=== PATIENT | female | born 1990 | race Caucasian/White ===

== ENCOUNTER 2020-12-11 10:11 | Emergency (ER) | payer BC ==
--- NOTE | 2020-12-11 10:44 | EDM.PDOC ---
ED HPI GENERAL MEDICAL PROBLEM - General Chief Complaint: Lower Extremity Injury/Pain Stated Complaint: BROKEN FOOT Time Seen by Provider: 12/11/20 10:20 Source of Information: Reports: Patient History Limitations: Reports: No Limitations - History of Present Illness INITIAL COMMENTS - FREE TEXT/NARRATIVE: HISTORY AND PHYSICAL: History of present illness: The patient is a 29 year old female, who presents with complaints of left calf pain and cramping, which started on Tuesday becoming progressively worse. She was casted two weeks ago due to left 5th metatars[address] Dr. Radha Hatch. The patient did call Dr. Hatch and was told to be seen in the ED. She does have nausea due to the pain. She denies any new injury and has been using a scooter to get around. She denies sticking any foreign objects into her cast, using only her hand. She states that previously she had been able to stick her hand down posterior cast but now is unable. She denies numbness or tingling. Patient denies any fever, chills, headache, change in vision, syncope or near syncope. Denies any chest pain, back pain, shortness of breath or cough. Denies any abdominal pain, vomiting, diarrhea, constipation or dysuria. Patient has been eating and drinking appropriately. Review of systems: As per history of present illness and below otherwise all systems reviewed and negative. Past medical history: As per history of present illness and as reviewed below otherwise noncontributory. Surgical history: As per history of present illness and as reviewed below otherwise noncontributory. Social history: See social history for further information Family history: As per history of present illness and as reviewed below otherwise noncontributory. Physical exam: General: Well developed and well nourished. Alert and orientated x 3. Nontoxic in appearance and in no acute distress. Vital signs are stable and have been reviewed by me. Nursing notes were reviewed. HEENT: Atraumatic, normocephalic, pupils equal and reactive bilaterally, negative for conjunctival pallor or scleral icterus, mucous membranes moist, TMs normal bilaterally, throat clear, neck supple, nontender, trachea midline. No drooling or trismus noted. No meningeal signs. No hot potato voice noted. Lungs: Clear to auscultation bilaterally. No wheezes, rales, or rhonchi. Chest nontender. Normal work of breathing, no accessory muscles used. Heart: S1S2, regular rate and rhythm without overt murmur, gallops, or rubs. No JVD. No peripheral edema Abdomen: Soft, nondistended, nontender. Normoactive bowel sounds. Negative for masses or costovertebral tenderness. Skin: Intact, warm, dry. No lesions or rashes noted. Hematologic: No petechiae or purpra. Mucosa appropriate color and normal nail bed color and refill. Extremities: Left lower foot casted. cap refill < 3 sec. Left calf cooler than right. Left toes and feet warm and dry. Moves all extremities per self without difficulty. Neurovascular unremarkable. Neuro: Awake, alert, oriented. Cranial nerves II through XII unremarkable. Cerebellum unremarkable. Motor and sensory unremarkable throughout. Exam nonfocal. Psychiatric: Mood and affect are appropriate. Normal thought process. Answering questions appropriately. Notes: *This patient was seen and evaluated during the 2019 SARS-CoV-2 novel coronavirus pandemic period. Community viral transmission is ongoing at time of this encounter and the emergency department is operating under pandemic response procedures. After discussion with the patient and exam, the patient is agreeable to removing cast and obtain an US. Patient will wear her walking boot home, as her appointment with Dr. Hatch is tomorrow. The patient's cast was removed. Patient tolerated well. No skin breakdown noted . Good pedal pulses noted. The patient's US imaging demonstrates DVT within the left posterior tibial veins. The left common femoral, deep femoral, superficial femoral, popliteal, and greater saphenous veins are fully compressible with normal color Doppler blood flow. per Dr. Nguyen, Radiologist. The patient is on control and has been advised to stop the oral control and to use back up contraception. She is agreeable to this. The patients labs are unremarkable. The patient has no SOB or cardiac distress. Eliquis 10mg BID for 7 days then Eliquis 5mg BID for 7 days prescribed. Patient to follow up with PCP. The patient gave verbal understanding. Eliquis education given to patient. I have talked with the patient about today's findings, in addition to providing specific details for plan of care. Reassessment at the time of disposition demonstrates that the patient is in no acute distress. The patient is stable for discharge, counseling was provided and we discussed in great detail signs and symptoms that would prompt them to return to the Emergency Department. Medication, follow up and supportive care measures were reviewed and discussed. Voices understanding and is agreeable to plan of care. Denies any further questions or concerns at this time. Diagnostics:US, CBC, CMP, PT, PTT, Therapeutics:Zofran Prescription: Eliquis 10mg BID for 7 days and then 5mg BID for 7 day Impression: DVT Plan: 1. You were evaluated today on an emergent basis. Your complaints of left lower leg pain and swelling under cast. Your ultrasound was positive for left posterio r tibial veins thrombosis. You will be started on Eliquis 10mg twice daily for 7 days. The Eliquis 5mg twice daily. You will need to keep your appointment with Dr. Quezada. You need to follow up with your primary care provider next week. No alcohol. Stop your control. You will need to use a backup contraception such as condoms. Will need to follow-up with your NANOSCIENCE TECHNICIAN. 2. You can alternate Tylenol and ibuprofen as needed for pain and fever management. 3. We encourage you to follow up with your primary care provider and/or recommended specialist in the next few days for re-evaluation and further care/management. 4. If your symptoms should worsen, new symptoms develop or any of the signs and symptoms we discussed should arise please return to the emergency room or call 911 (if needed). Definitive disposition and diagnosis as appropriate pending reevaluation and review of above. left lower leg Pain Score (Numeric/FACES): 8 - Related Data Allergies Allergy/AdvReac Type Severity Reaction Status Date / Time No Known Allergies Allergy Verified 12/11/20 10:20 Home Meds: Home Meds Apixaban [Eliquis] 10 mg PO BID 7 Days #42 tablet 12/11/20 [Rx] Non-Formulary Medication [NF Drug] 1 each PO DAILY 12/11/20 [History] Past Medical History - Past Health History Medical/Surgical History: Denies Medical/Surgical History - Infectious Disease History Infectious Disease History: Reports: Chicken Pox, Novel Coronavirus Social & Family History - Family History Family Medical History: No Pertinent Family History - Tobacco Use Tobacco Use Status *Q: Former Tobacco User Used Tobacco, but Quit: Yes Month/Year Tobacco Last Used: 2013 - Caffeine Use Caffeine Use: Reports: Coffee - Recreational Drug Use Recreational Drug Use: No Review of Systems - Review of Systems Review Of Systems: Comprehensive ROS is negative, except as noted in HPI. ED EXAM, GENERAL - Physical Exam Exam: See Below (see dictation) Course - Vital Signs Last Recorded V/S: Last Vital Signs Temp 97.5 F 12/11/20 10:21 Pulse 95 12/11/20 10:21 Resp 19 12/11/20 10:21 BP 172/87 H 12/11/20 10:21 Pulse Ox 97 12/11/20 10:21 - Orders/Labs/Meds Labs: Laboratory Tests 12/11/20 12/11/20 12/11/20 Range/Units 12:05 12:05 12:05 WBC 9.68 (4.0-11.0) K/uL RBC 4.91 (4.30-5.90) M/uL Hgb 15.1 (12.0-16.0) g/dL Hct 45.4 (36.0-46.0) % MCV 92.5 (80.0-98.0) fL MCH 30.8 (27.0-32.0) pg MCHC 33.3 (31.0-37.0) g/dL RDW Std Deviation 47.0 (28.0-62.0) fl RDW Coeff of Charly 14 (11.0-15.0) % Plt Count 240 (150-400) K/uL MPV 9.70 (7.40-12.00) fL Neut % (Auto) 66.9 (48.0-80.0) % Lymph % (Auto) 25.5 (16.0-40.0) % [place] % (Auto) 6.4 (0.0-15.0) % Eos % (Auto) 1.0 (0.0-7.0) % Baso % (Auto) 0.2 (0.0-1.5) % Neut # (Auto) 6.5 H (1.4-5.7) K/uL Lymph # (Auto) 2.5 H (0.6-2.4) K/uL [place] # (Auto) 0.6 (0.0-0.8) K/uL Eos # (Auto) 0.1 (0.0-0.7) K/uL Baso # (Auto) 0.0 (0.0-0.1) K/uL Nucleated RBC % 0.0 /100WBC Nucleated RBCs # 0 K/uL INR 1.00 APTT 26.0 (18.6-31.3) SEC Sodium 142 (136-145) mmol/L Potassium 4.0 (3.5-5.1) mmol/L Chloride 105 (98-107) mmol/L Carbon Dioxide 28.3 (21.0-32.0) mmol/L BUN 11 (7.0-18.0) mg/dL Creatinine 1.0 (0.6-1.0) mg/dL Est Cr Clr Drug Dosing 89.76 mL/min Estimated GFR (MDRD) > 60.0 ml/min Glucose 98 (74-106) mg/dL Calcium 9.5 (8.5-10.1) mg/dL Total Bilirubin 0.6 (0.2-1.0) mg/dL AST 29 (15-37) IU/L ALT 67 H (14-63) IU/L Alkaline Phosphatase 71 (46-116) U/L Total Protein 7.3 (6.4-8.2) g/dL Albumin 3.9 (3.4-5.0) g/dL Globulin 3.4 (2.6-4.0) g/dL Albumin/Globulin Ratio 1.1 (0.9-1.6) HCG, Qual (NEG) 12/11/20 Range/Units 12:05 WBC (4.0-11.0) K/uL RBC (4.30-5.90) M/uL Hgb (12.0-16.0) g/dL Hct (36.0-46.0) % MCV (80.0-98.0) fL MCH (27.0-32.0) pg MCHC (31.0-37.0) g/dL RDW Std Deviation (28.0-62.0) fl RDW Coeff of Charly (11.0-15.0) % Plt Count (150-400) K/uL MPV (7.40-12.00) fL Neut % (Auto) (48.0-80.0) % Lymph % (Auto) (16.0-40.0) % [place] % (Auto) (0.0-15.0) % Eos % (Auto) (0.0-7.0) % Baso % (Auto) (0.0-1.5) % Neut # (Auto) (1.4-5.7) K/uL Lymph # (Auto) (0.6-2.4) K/uL [place] # (Auto) (0.0-0.8) K/uL Eos # (Auto) (0.0-0.7) K/uL Baso # (Auto) (0.0-0.1) K/uL Nucleated RBC % /100WBC Nucleated RBCs # K/uL INR APTT (18.6-31.3) SEC Sodium (136-145) mmol/L Potassium (3.5-5.1) mmol/L Chloride (98-107) mmol/L Carbon Dioxide (21.0-32.0) mmol/L BUN (7.0-18.0) mg/dL Creatinine (0.6-1.0) mg/dL Est Cr Clr Drug Dosing mL/min Estimated GFR (MDRD) ml/min Glucose (74-106) mg/dL Calcium (8.5-10.1) mg/dL Total Bilirubin (0.2-1.0) mg/dL AST (15-37) IU/L ALT (14-63) IU/L Alkaline Phosphatase (46-116) U/L Total Protein (6.4-8.2) g/dL Albumin (3.4-5.0) g/dL Globulin (2.6-4.0) g/dL Albumin/Globulin Ratio (0.9-1.6) HCG, Qual NEGATIVE (NEG) Meds: Medications Discontinued Medications Generic Name Dose Route Start Last Admin Trade Name Freq PRN Reason Stop Dose Admin Ondansetron HCl 4 mg 12/11/20 11:19 12/11/20 11:23 Ondansetron 4 Mg Tab PO 12/11/20 11:20 4 mg ONETIME ONE Administration Departure - Departure Time of Disposition: 13:15 Disposition: Home, Self-Care 01 Condition: Good Clinical Impression: DVT (deep venous thrombosis) Qualifiers: DVT location: lower extremity Affected thrombotic vein of extremity: tibial Chronicity: acute Laterality: left Qualified Code(s): I82.442 - Acute embolism and thrombosis of left tibial vein Clinical Impression: (Ruled Out): DVT of axillary vein, acute left - Discharge Information *PRESCRIPTION DRUG MONITORING PROGRAM REVIEWED*: Not Applicable *COPY OF PRESCRIPTION DRUG MONITORING REPORT IN PATIENT ROMAN: Not Applicable Prescriptions: Apixaban [Eliquis] 10 mg PO BID 7 Days #42 tablet Instructions: Deep Vein Thrombosis Referrals: Sia Harrison [facility] [Primary Care Provider] - Forms: ED Department Discharge Additional Instructions: The following information is given to patients seen in the emergency department who are being discharged to home. This information is to outline your options for follow-up care. We provide all patients seen in our emergency department with a follow-up referral. The need for follow-up, as well as the timing and circumstances, are variable de pending upon the specifics of your emergency department visit. If you don't have a primary care physician on staff, we will provide you with a referral. We always advise you to contact your personal physician following an emergency department visit to inform them of the circumstance of the visit and for follow-up with them and/or the need for any referrals to a consulting specialist. The emergency department will also refer you to a specialist when appropriate. This referral assures that you have the opportunity for follow-up care with a specialist. All of these measure are taken in an effort to provide you with optimal care, which includes your follow-up. Under all circumstances we always encourage you to contact your private physician who remains a resource for coordinating your care. When calling for follow-up care, please make the office aware that this follow-up is from your recent emergency room visit. If for any reason you are refused follow-up, please contact the [facility] Emergency Department at and asked to speak to the emergency department charge nurse. [facility] - [facility] [address] [place] [id number] [id number] Plan: 1. You were evaluated today on an emergent basis. Your complaints of left lower leg pain and swelling under cast. Your ultrasound was positive for left posterior tibial veins thrombosis. You will be started on Eliquis 10mg twice daily for 7 days. The Eliquis 5mg twice daily. You will need to keep your appointment with Dr. Quezada. You need to follow up with your primary care provider next week. No alcohol. Stop your control. You will need to use a backup contraception such as condoms. Will need to follow-up with your NANOSCIENCE TECHNICIAN. 2. You can alternate Tylenol and ibuprofen as needed for pain and fever management. 3. We encourage you to follow up with your primary care provider and/or recommended specialist in the next few days for re-evaluation and further care/management. 4. If your symptoms should worsen, new symptoms develop or any of the signs and symptoms we discussed should arise please return to the emergency room or call 911 (if needed). Sepsis Event Note (ED) - Evaluation Sepsis Screening Result: No Definite Risk - Focused Exam Vital Signs: Vital Signs Temp Pulse Resp BP Pulse Ox 12/11/20 10:21 97.5 F 95 19 172/87 H 97
[2020-12-11] MEDS ORDERED: Ondansetron 4 MG Tab PO ONE (11:19)
--- NOTE | 2020-12-11 12:17 | US ---
INDICATION: Fracture 2 weeks ago with increased swelling and pain TECHNIQUE: Ultrasound venous duplex lower left extremity. Compression venous exam was performed using zepeda-scale, color Doppler, and spectral Doppler analysis. COMPARISON: None FINDINGS: Sonographic imaging demonstrates DVT within the left posterior tibial veins. The left common femoral, deep femoral, superficial femoral, popliteal, and greater saphenous veins are fully compressible with normal color Doppler blood flow. IMPRESSION: Study positive for DVT in the left posterior tibial veins. Findings discussed with LOUIS Pearce at 12:14 p.m. on December 11, 2020. Dictated by Shahrzad Nguyen MD @ Dec 11 2020 12:04PM (Electronically Signed)
[2020-12-11 12:52] LABS: BLOOD UREA NITROGEN,BUN 11 mg/dL (7.0-18.0); CARBON DIOXIDE,CO2 28.3 mmol/L (21.0-32.0); CHLORIDE,CL 105 mmol/L (98-107); GLUCOSE RANDOM 98 mg/dL (74-106); SODIUM,NA 142 mmol/L (136-145)
== END 2020-12-11 13:27 | disposition home or self-care (01) ==
LOC: MW.ED 10:11
DX: I82.442 Acute embolism and thrombosis of left tibial vein (principal); Z79.01 Long term (current) use of anticoagulants; Z87.891 Personal history of nicotine dependence
CPT/HCPCS: 36415; 80053; 84703; 85025; 85610; 85730; 93971; 99284; A9270; 99283

== ENCOUNTER 2022-07-12 09:24 | Inpatient (IN) | payer BC ==
[2022-07-12] MEDS ORDERED: Methylergonovine 0.2 MG/1 ML Amp IM PRN (09:53)
[2022-07-12] MEDS ORDERED: Water For Irrigation,Sterile 1,000 ML Container IRR PRN (09:53)
[2022-07-12] MEDS ORDERED: Sodium Chloride 0.9% 20 ML SDV IV PRN (09:53)
[2022-07-12] MEDS ORDERED: Misoprostol 200 MCG Tab PO PRN (09:53)
[2022-07-12] MEDS ORDERED: Terbutaline 1 MG/ML SDV SUBCUT PRN (09:53)
[2022-07-12] MEDS ORDERED: Tranexamic Acid 1,000 MG in Sodium Chloride 0.9% 100 ML IV PRN (09:53)
[2022-07-12] MEDS ORDERED: Misoprostol 25 MCG (1/4 of 100 MCG) Tab VAG PRN (09:53)
[2022-07-12] MEDS ORDERED: Lidocaine 1% 50 ML MDV INJECT PRN (09:53)
[2022-07-12] MEDS ORDERED: Carboprost Tromethamine 250 MCG/1 ML Amp IM PRN (09:53)
[2022-07-12] MEDS ORDERED: Butorphanol 1 MG/ML SDV IVPUSH PRN (09:53)
[2022-07-12] MEDS ORDERED: Sodium Chloride 0.9% 2.5 ML Syringe FLUSH PRN (09:53)
[2022-07-12] MEDS ORDERED: Sodium Chloride 0.9% 10 ML Syringe FLUSH PRN (09:53)
[2022-07-12] MEDS ORDERED: Oxytocin/0.9 % Sodium Chloride 30 UNIT/500 ML BAG IV SCH ×2 (10:00)
[2022-07-12] MEDS ORDERED: ePHEDrine 50 MG/ML SDV IVPUSH PRN ×2 (10:41)
[2022-07-12] MEDS ORDERED: Ropivacaine HCl/PF 400 MG in Premix Bag 1 BAG EPIDUR SCH (10:45)
[2022-07-12] MEDS ORDERED: Phenylephrine HCl In 0.9% NaCl 1 MG/10 ML Vial IVPUSH SCH (10:45)
[2022-07-12] MEDS: Lactated Ringers 1,000 ML IV SCH (10:58)
[2022-07-12] MEDS: Misoprostol 25 MCG (1/4 of 100 MCG) Tab VAG PRN ×3 (10:59→20:00)
[2022-07-12] MEDS: Misoprostol 25 MCG (1/4 of 100 MCG) Tab PO SCH ×3 (11:00→19:59)
[2022-07-13] MEDS: Misoprostol 25 MCG (1/4 of 100 MCG) Tab PO SCH (00:16)
[2022-07-13] MEDS: Misoprostol 25 MCG (1/4 of 100 MCG) Tab VAG PRN (00:17)
[2022-07-13] MEDS: Lactated Ringers 1,000 ML IV SCH ×2 (04:20→09:55)
[2022-07-13] MEDS ORDERED: fentaNYL 100 MCG/2 ML SDV ONE (09:47)
[2022-07-13] MEDS ORDERED: Phenylephrine HCl In 0.9% NaCl 1 MG/10 ML Vial ONE (09:47)
[2022-07-13] MEDS ORDERED: Acetaminophen 500 MG Tab PO PRN ×2 (12:51)
[2022-07-13] MEDS ORDERED: Ibuprofen 400 MG Tab PO PRN (12:51)
[2022-07-13] MEDS ORDERED: Benzocaine/Menthol 20%-0.5% Spray 78 GM Cannister TOP PRN (12:51)
[2022-07-13] MEDS ORDERED: Lanolin 100% Cream 7 GM Tube TOP PRN (12:51)
[2022-07-13] MEDS ORDERED: Ibuprofen 800 MG Tab PO PRN (12:51)
[2022-07-13] MEDS ORDERED: Bisacodyl 10 MG Supp RECTAL PRN (12:51)
[2022-07-13] MEDS ORDERED: oxyCODONE 5 MG Tab PO PRN (12:51)
[2022-07-13] MEDS ORDERED: Witch Hazel Medicated Pads 40/Jar TOP PRN (12:51)
[2022-07-13] MEDS ORDERED: Penicillin G Benzathine 1,200,000 Units/2 ML Syringe IM ONE (16:09)
[2022-07-14] MEDS ORDERED: ENOXAPARIN 40 MG/0.4 ML SUBCUT ONE (09:00)
[2022-07-14] MEDS: Docusate Sodium 100 MG Cap PO PRN ×2 (09:04→21:52)
[2022-07-14] MEDS: Misoprostol 25 MCG (1/4 of 100 MCG) Tab PO SCH (21:52)
== END 2022-07-15 17:50 | disposition home or self-care (01) | DRG 560 ==
LOC: MW.OB 09:24 → OBSVTOIN 07-13 14:32 → MW.OB 07-13 18:01
PROVIDERS: ADMIT Obstetrics & Gynecology; ATTEND Obstetrics & Gynecology
PROC: 10907ZC Drainage of Amniotic Fluid, Therapeutic from Products of Conception, Via Natural or Artificial Opening (ICD-10-PCS; principal; 2022-07-13)
PROC: 10D07Z6 Extraction of Products of Conception, Vacuum, Via Natural or Artificial Opening (ICD-10-PCS; 2022-07-13)
PROC: 3E0DXGC Introduction of Other Therapeutic Substance into Mouth and Pharynx, External Approach (ICD-10-PCS; 2022-07-13)
PROC: 00HU33Z Insertion of Infusion Device into Spinal Canal, Percutaneous Approach (ICD-10-PCS; 2022-07-13)
PROC: 3E0R3BZ Introduction of Anesthetic Agent into Spinal Canal, Percutaneous Approach (ICD-10-PCS; 2022-07-13)
DX: O99.12 Other diseases of the blood and blood-forming organs and certain disorders involving the immune mechanism complicating childbirth (principal); Z79.01 Long term (current) use of anticoagulants; Z3A.38 38 weeks gestation of pregnancy; Z37.0 Single live birth; Z20.822 Contact with and (suspected) exposure to COVID-19
CPT/HCPCS: 01967; 36415; 51702; 59025; 59409; 85014; 85018; 85027; 86592; 86593; 86780; 86850; 86900; 86901; A9270-GY; J0561; J0595; J2590; J3010; J7120; U0002

== ENCOUNTER 2024-10-13 14:47 | Emergency (ER) | payer BC | END 2024-10-13 18:25 | disposition home or self-care (01) | LOC: MW.ED 14:47 | DX: I83.91 Asymptomatic varicose veins of right lower extremity (principal); Z86.16 Personal history of COVID-19; Z75.8 Other problems related to medical facilities and other health care; Z79.899 Other long term (current) drug therapy | CPT/HCPCS: 93971-26-RT; 93971-RT; 99283 ==